=== PATIENT | male | born 1990 | race Caucasian/White ===

== ENCOUNTER 2018-03-15 16:36 | Emergency (ER) | payer OTHER ==
[~2018-03-15] VITALS: Ht 165.1 cm; Wt 64.9 kg
[~2018-03-15 16:36] MED LIST: RISP2TAB PO
[2018-03-15 16:55] VITALS: BP 130/76
[2018-03-15 17:50] VITALS: BP 130/76
== END 2018-03-15 17:32 | disposition home or self-care (01) ==
LOC: MED 16:36
DX: S30.812A Abrasion of penis, initial encounter (principal); Y93.89 Activity, other specified; X58.XXXA Exposure to other specified factors, initial encounter; F20.9 Schizophrenia, unspecified; F31.9 Bipolar disorder, unspecified; Z88.8 Allergy status to other drugs, medicaments and biological substances; Z79.899 Other long term (current) drug therapy; Y92.89 Other specified places as the place of occurrence of the external cause; Y99.8 Other external cause status
CPT/HCPCS: 99283

== ENCOUNTER 2023-05-26 20:34 | Emergency (ER) | payer OTHER ==
[~2023-05-26] VITALS: Ht 167.6 cm; Wt 65.8 kg
--- NOTE | 2023-05-26 20:38 | NUR ---
PT BIBA ALS ER BED 8
[2023-05-26 20:50] VITALS: BP 108/86; PULSE 102; RESP 16; O2SAT 95
--- NOTE | 2023-05-26 20:59 | NUR ---
32 YO M [place] S/P OVERDOSE. PARAMEDICS STATE PEDESTRIAN FOUND PT IN PARK BATHROOM UNRESPONSIVE. PEDISTRIAN ADMINISTERED NARCAN AND PARAMEDICS STATED THEY GAVE ANOTHER DOSE OF NARCAN IN AMBULANCE. PT AXO3. REPETEDLY ASKS WHAT HOSPITAL HES IN AND WHERE HE WAS FOUND. IN VIEW OF NURSES STATION. BED IN LOWEST POSITION. CALL LIGHT WITHIN REACH. ALLERGIES: RESPERIDONE NO MED HX.
--- NOTE | 2023-05-26 22:24 | NUR ---
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 SP02 95% 2L NC. RESP EVEN AND UNLABORED. HOB ELEVATED. CALL LIGHT WITHIN REACH
[2023-05-27 00:21] VITALS: O2SAT 95
--- NOTE | 2023-05-27 00:21 | NUR ---
PT STANDING AT BEDSIDE USING URINAL. A&OX3
[2023-05-27] MEDS ORDERED: BACITRACIN OINT 500 UNITS/GM PKT TP ONE (00:28)
[2023-05-27] MEDS ORDERED: NALO4SPR NS (00:42)
[2023-05-27 01:00] VITALS: BP 130/78; PULSE 118; RESP 24; O2SAT 96
--- NOTE | 2023-05-27 01:01 | NUR ---
Patient discharged with v/s stable. Written and verbal after care instructions given and explained. Patient verbalized understanding. Ambulatory with steady gait. All questions addressed prior to discharge. Advised to follow up with PMD.
[2023-05-27 01:15] LABS: BARBITURATE, URINE NEGATIVE ng/ml (NEG <=200); BENZODIAZEPINE, URINE NEGATIVE ng/mL (NEG <=200); CANNABINOID, URINE NEGATIVE ng/mL (NEG <=50); COCAINE, URINE NEGATIVE ng/mL (NEG <=300); OPIATE, URINE NEGATIVE ng/mL (NEG <=2000); PHENCYCLIDINE SCREEN,URINE NEGATIVE ng/mL (NEG <=25)
== END 2023-05-27 00:54 | disposition home or self-care (01) ==
LOC: MED 20:34
DX: T50.7X1A Poisoning by analeptics and opioid receptor antagonists, accidental (unintentional), initial encounter (principal); F15.10 Other stimulant abuse, uncomplicated; Z88.8 Allergy status to other drugs, medicaments and biological substances; Z79.899 Other long term (current) drug therapy; Y92.89 Other specified places as the place of occurrence of the external cause
CPT/HCPCS: 80305; 93005; 99285